=== PATIENT | male | born 2000 | race African-American/Black ===

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

== ENCOUNTER 2019-05-25 00:25 | Inpatient (IN) | payer OTHER ==
[2019-05-25] MEDS ORDERED: ALBUTEROL SO4 2.5/IPRATROPIUM 0.5 INH SOL 3 ML VIAL.NEB. NEB ONE ×2 (00:44→00:50)
--- NOTE | 2019-05-25 00:44 | PDOC ---
History of Present Illness - General Stated Complaint: DIFFICULTY BREATHING Time Seen by Provider: 05/25/19 00:34 - History of Present Illness Initial Comments: 05/25/19 00:42 CHIEF COMPLAINT: asthma exaceration HISTORY OF PRESENT ILLNESS: 18 yo M with hx of asthma (with hx hospitalization, no intubations) presents to ED with coughing and chest tightness since yesterday. Patient reports using albuterol inhaler at home but without relief. Reports subjective fever and chills, denies nausea/vomiting/diarrhea. No recent travel or sick contacts. PAST MEDICAL HISTORY: asthma FAMILY HISTORY: Denies SOCIAL HISTORY: Denies tobacco, alcohol, illicit drug use. SURGICAL HISTORY: Denies ALLERGIES: cats REVIEW OF SYSTEMS General/Constitutional: Denies fever or chills. Denies weakness, weight change. HEENT: Runny nose x 2 days. Denies change in vision. Denies ear pain or discharge. Denies sore throat. Cardiovascular: Denies chest pain or shortness of breath. Respiratory: Cough and wheezing since yesterday. Gastrointestinal: Denies nausea, vomiting, diarrhea or constipation. Denies rectal bleeding. Genitourinary: Denies dysuria, frequency, or change in urination. Musculoskeletal: Denies joint or muscle swelling or pain. Denies neck or back pain. Skin and breasts: Denies rash or easy bruising. Neurologic: Denies headache, vertigo, loss of consciousness, or loss of sensation. Psychiatric: Denies depression or anxiety. PHYSICAL EXAM General Appearance: Well-appearing, appropriately dressed. No apparent distress , no intoxication. HEENT: Post nasal drip, rhinorrhea, nasal congestion. EOMI, PERRLA, normal voice, TMs normal, pharynx normal. No conjunctival pallor. No photophobia, scleral icterus. Neck: Supple. Trachea midline. No tenderness, rigidity, carotid bruit, stridor , lymphadenopathy, or thyromegaly. Respiratory/Chest: Persistent nonproductive cough. Inspiratory and expiratory wheezing throughout. No chest tenderness,accessory muscle use. No crackles, rales, rhonchi, stridor, dullness Cardiovascular: RRR. S1, S2. No JVD, murmur, bradycardia, tachycardia. Vascular Pulses: Dorsalis-Pedis (R): 2+, Dorsalis-Pedis (L): 2+ Gastrointestinal/Abdominal: Normal bowel sounds. Abdomen soft, non-distended. No tenderness or rebound tenderness. No organomegaly, pulsatile mass, guarding , hernia, hepatomegaly, splenomegaly. Lymphatic: No adenopathy, tenderness. Musculoskeletal/Extremities: Normal inspection. FROM of all extremities, normal capillary refill. Pelvis Stable. No CVA tenderness. No tenderness to extremities, pedal edema, swelling, erythema or deformity. Integumentary: Appropriate color, dry, warm. No cyanosis, erythema, jaundice or rash Neurologic: milling machine operator II-XII intact. Fully oriented, alert. Appropriate mood/affect. Motor strength 5/5. No appreciable EOM palsy, facial droop or sensory deficit. 05/25/19 00:45 Past History - Past Medical History Allergies/Adverse Reactions: Allergies Allergy/AdvReac Type Severity Reaction Status Date / Time cat dander Allergy Verified 05/25/19 01:04 cats,dander,natures and Allergy Uncoded 05/25/19 01:04 steriods Allergy Uncoded 05/25/19 01:04 Home Medications: Ambulatory Orders Albuterol Sulfate Inhaler - [Ventolin HFA Inhaler -] 2 inh PO Q6H #1 inh Asthma: Yes COPD: No - Immunization History Immunization Up to Date: Yes - Suicide/Smoking/Psychosocial Hx Smoking Status: No Smoking History: Never smoked Have you smoked in the past 12 months: No Number of Cigarettes Smoked Daily: 0 Cigars Per Day: 0 Hx Alcohol Use: No Drug/Substance Use Hx: No Substance Use Type: None ED Treatment Course - LABORATORY CBC & Chemistry Diagram: 05/25/19 04:00 05/25/19 04:00 Medical Decision Making - Medical Decision Making 05/25/19 00:47 8 yo M with hx of asthma (with hx hospitalization, no intubations) presents to ED with coughing and chest tightness since yesterday. -duonebs, decadron -CXR 05/25/19 01:33 Patient continues to have wheezing to b/l lungs after duoneb x 3 and decadron. -1g Mg IV. Case discussed in detail with resident MD Laws including history, physical exam and ancillary studies. In brief, this patient is being seen in the ED for a chief complaint of: asthma exacerbation, cough Pending results: reassessement after Mg Plan for disposition as follows: likely admit if no improvement MD Laws has assumed care for the patient and will complete the evaluation and treatment. *DC/Admit/Observation/Transfer Diagnosis at time of Disposition: Asthma Qualifiers: Asthma severity: unspecified severity Asthma persistence: unspecified Asthma complication type: with acute exacerbation Qualified Code(s): J45.901 - Unspecified asthma with (acute) exacerbation - Discharge Dispostion Condition at time of disposition: Stable - Referrals - Patient Instructions - Post Discharge Activity
[2019-05-25] MEDS ORDERED: DEXAMETHASONE SOD PHOSPHATE 10 MG/1 ML VIAL IVPUSH ONE (00:45)
[2019-05-25] MEDS ORDERED: DEXAMETHASONE SOD PHOSPHATE 10 MG/1 ML VIAL ONE (01:23)
[2019-05-25] MEDS ORDERED: MAGNESIUM SULF 50% (8.12 MEQ/2 ML-1 GM VIAL) IVPB ONE (01:33)
[2019-05-25] MEDS ORDERED: MAGNESIUM SULF 50% (8.12 MEQ/2 ML-1 GM VIAL) ONE (01:43)
--- NOTE | 2019-05-25 02:34 | PDOC ---
*Physical Exam - Vital Signs Last Vital Signs Temp Pulse Resp BP Pulse Ox 98.3 F 120 H 20 108/59 L 95 05/25/19 01:00 05/25/19 01:00 05/25/19 01:00 05/25/19 01:00 05/25/19 02:00 - Physical Exam Comments: 05/25/19 03:13 General Appearance: Nourished. No Apparent Distress HEENT: No Pharyngeal Erythema, Tonsillar Exudate, Tonsillar Erythema Neck: No Cervical Lymphadenopathy Respiratory/Chest: Poor air movement with diffuse inspiratory and expiratory wheezing on exam. No Crackles, Rales, Rhonchi, Cardiovascular: Regular Rhythm, Tachycardic Rate. No Murmur, Gallops, Rubs Gastrointestinal/Abdominal: Normal Bowel Sounds, Soft. No Guarding, Rebound, Tenderness Musculoskeletal: No CVA Tenderness Extremity: Normal Capillary Refill Integumentary: Normal Color, Dry, Warm Neurologic: Fully Oriented, Alert, Normal Mood/Affect, Normal Response, ED Treatment Course - Medications Given in the ED: ED Medications Discontinued Medications Generic Name Dose Route Start Last Admin Trade Name Ariella PRN Reason Stop Dose Admin Albuterol/Ipratropium 3 amp 05/25/19 00:44 05/25/19 01:01 Duoneb - NEB 05/25/19 00:45 3 amp ONCE ONE Administration Dexamethasone Sodium Phosphate 10 mg 05/25/19 00:45 05/25/19 01:35 Decadron Injection - IVPUSH 05/25/19 00:46 10 mg ONCE ONE Administration Magnesium Sulfate 1 gm 05/25/19 01:33 05/25/19 01:50 Magnesium Sulfate IVPB 05/25/19 01:34 1 gm ONCE ONE Administration Medical Decision Making - Medical Decision Making 05/25/19 03:14 The patient continues to remain symptomatic with diffuse inspiratory and expiratory wheezing on exam despite treatment with multiple rounds of duonebs, decadron, and mag. The patient will require continues albuterol and admission for further management. We discussed the case with Dr. Steinberg with the admitting team who accepted the patient for admission. *DC/Admit/Observation/Transfer Diagnosis at time of Disposition: Asthma Qualifiers: Asthma severity: unspecified severity Asthma persistence: unspecified Asthma complication type: with acute exacerbation Qualified Code(s): J45.901 - Unspecified asthma with (acute) exacerbation - Discharge Dispostion Condition at time of disposition: Stable Decision to Admit order: Yes - Referrals Referrals: Wilton Barger [Primary Care Provider] - - Patient Instructions - Post Discharge Activity
[2019-05-25] MEDS ORDERED: ALBUTEROL SO4 0.083% IH SOL 2.5 MG/3 ML VIAL.NEB. NEB ONE ×2 (04:01→08:30)
[2019-05-25] MEDS: ALBUTEROL SO4 0.083% IH SOL 2.5 MG/3 ML VIAL.NEB. NEB PRN ×2 (04:03→08:30)
[2019-05-25] MEDS ORDERED: ACETAMINOPHEN 1000 MG/100 ML VIAL (NON FORMULARY) IVPB ONE (04:28)
[2019-05-25] MEDS ORDERED: ACETAMINOPHEN INJECTION 100 ML IVPB ONE (04:33)
[2019-05-25 04:47] LABS: BASO % 0.6 % (0-2.0); EOS % 0.9 % (0-4.5); HEMATOCRIT 45.4 % (35.4-49); HEMOGLOBIN 15.1 GM/dL (11.7-16.9); LYMPH % 4.4 % (8-40); MCH 28.6 pg (25.7-33.7); MCHC 33.3 g/dl (32.0-35.9); MEAN CELL VOLUME 85.9 fl (80-96); MEAN PLT VOLUME 9.3 fl (7.5-11.1); MONO % 4.4 % (3.8-10.2); NEUT % 89.7 % (42.8-82.8); PLATELET COUNT 352 K/MM3 (134-434); RBC 5.29 M/mm3 (4.00-5.60); RDW 13.6 % (11.9-15.9); WHITE BLOOD COUNT 16.8 K/mm3 (4.0-10.0)
[2019-05-25 08:09] LABS: BILIRUBIN,TOTAL 0.5 mg/dL (0.2-1); BLOOD UREA NITROGEN 13.8 mg/dL (7-18); CALCIUM 9.4 mg/dL (8.5-10.1); CREATININE 1.3 mg/dL (0.55-1.3); POTASSIUM 4.2 mmol/L (3.5-5.1); TOT PROT 8.9 g/dl (6.4-8.2)
[2019-05-25] MEDS ORDERED: ALBUTEROL SO4 2.5/IPRATROPIUM 0.5 INH SOL 3 ML VIAL.NEB. NEB PRN (09:15)
--- NOTE | 2019-05-25 09:47 | HP ---
Admitting History and Physical - Admission History of Present Illness: 18 y/o male with hx of asthma / obesity with 1-2 day hx of chest tightness and dyspnea, hx of hospitalizations but no intubation in the past - states has been controlled on pulmocort and ventolin. Reports inhalers "did not work" which prompted ER visit. He denies fever and chills prior to ED visit. History Source: Patient Limitations to Obtaining History: No Limitations - Past Medical History Pulmonary: Yes: Asthma - Smoking History Smoking history: Never smoked Have you smoked in the past 12 months: No Aproximately how many cigarettes per day: 0 - Alcohol/Substance Use Hx Alcohol Use: No History of Substance Use: reports: None - Social History Usual Living Arrangement: Yes: With Parent ADL: Independent History of Recent Travel: No Home Medications - Allergies Allergies/Adverse Reactions: Allergies Allergy/AdvReac Type Severity Reaction Status Date / Time cat dander Allergy Verified 05/25/19 01:04 cats,dander,natures and Allergy Uncoded 05/25/19 01:04 steriods Allergy Uncoded 05/25/19 01:04 - Home Medications Home Medications: Ambulatory Orders Albuterol Sulfate Inhaler - [Ventolin HFA Inhaler -] 2 inh PO Q6H #1 inh Review of Systems - Review of Systems Constitutional: denies: Chills, Fever, Night Sweats Eyes: reports: No Symptoms HENT: reports: No Symptoms Neck: reports: No Symptoms Cardiovascular: reports: Shortness of Breath. denies: Chest Pain, Palpitations Respiratory: reports: Cough, SOB, Wheezing Genitourinary: reports: No Symptoms Breasts: reports: No Symptoms Reported Musculoskeletal: reports: No Symptoms Integumentary: reports: No Symptoms Endocrine: reports: No Symptoms Hematology/Lymphatic: reports: No Symptoms Psychiatric: reports: No Symptoms Physical Examination Vital Signs: Vital Signs Temperature 99.1 F 05/25/19 07:19 Pulse Rate 98 H 05/25/19 07:19 Respiratory Rate 18 05/25/19 07:19 Blood Pressure 116/66 05/25/19 07:19 O2 Sat by Pulse Oximetry (%) 97 05/25/19 07:19 Constitutional: Yes: Well Nourished, No Distress, Calm, Obese Eyes: Yes: Conjunctiva Clear, EOM Intact HENT: Yes: Atraumatic, Normocephalic Neck: Yes: Supple, Trachea Midline Cardiovascular: Yes: Regular Rate and Rhythm Respiratory: Yes: Poor Air Entry, Wheezes Gastrointestinal: Yes: WNL ...Rectal Exam: Yes: Deferred Renal/: Yes: WNL Breast(s): Yes: WNL Musculoskeletal: Yes: WNL Extremities: Yes: WNL Edema: No Peripheral Pulses WNL: Yes Integumentary: Yes: WNL Neurological: Yes: WNL ...Motor Strength: WNL Psychiatric: Yes: WNL Labs: CBC, BMP 05/25/19 04:00 05/25/19 04:00 Problem List - Problems (1) Obesity (BMI 30.0-34.9) Code(s): E66.9 - OBESITY, UNSPECIFIED (2) Asthma Code(s): J45.909 - UNSPECIFIED ASTHMA, UNCOMPLICATED Qualifiers: Asthma severity: unspecified severity Asthma persistence: unspecified Asthma complication type: with acute exacerbation Qualified Code(s): J45.901 - Unspecified asthma with (acute) exacerbation (3) Hyponatremia Assessment/Plan: Na 130 no previous hx of hyponatremia Code(s): E87.1 - HYPO-OSMOLALITY AND HYPONATREMIA Assessment/Plan # Asthma IV steroids / inhaled steroids / nebulizer tx / singulair no evidence of infection defer ABX # Hyponatremia reports inc fluid intake will trend # Obese recommend weight loss
[2019-05-25] MEDS ORDERED: PT OWN MED DRAWER 7, Y5N ONE (11:27)
[2019-05-25] MEDS: DEXTROSE 5%-0.45% SALINE 1,000 ML IV SCH (11:29)
[2019-05-25] MEDS: MOMETASONE FUROATE 220 MCG/IH INHALER IH SCH (11:40)
[2019-05-25] MEDS: PANTOPRAZOLE 40 MG TABLET (FP) PO SCH (11:41)
[2019-05-25] MEDS: ALBUTEROL SO4 2.5/IPRATROPIUM 0.5 INH SOL 3 ML VIAL.NEB. NEB SCH ×3 (12:14→21:41)
[2019-05-25 13:10] VITALS: BMI 36.8
[2019-05-25] MEDS: methylPREDNISolone NA SUCC 125 MG/2 ML VIAL IVPUSH SCH ×2 (17:21→21:13)
[2019-05-25] MEDS: MONTELUKAST NA 10 MG TABLET PO SCH (21:13)
[2019-05-26] MEDS: methylPREDNISolone NA SUCC 125 MG/2 ML VIAL IVPUSH SCH ×3 (02:35→21:15)
[2019-05-26] MEDS: DEXTROSE 5%-0.45% SALINE 1,000 ML IV SCH ×2 (02:36→09:29)
[2019-05-26] MEDS: ALBUTEROL SO4 2.5/IPRATROPIUM 0.5 INH SOL 3 ML VIAL.NEB. NEB SCH ×4 (08:00→19:39)
[2019-05-26 08:06] LABS: HEMOGLOBIN 14.5 GM/dL (11.7-16.9); MCHC 33.7 g/dl (32.0-35.9); MEAN CELL VOLUME 85.9 fl (80-96); MEAN PLT VOLUME 8.4 fl (7.5-11.1); PLATELET COUNT 304 K/MM3 (134-434); RDW 13.6 % (11.9-15.9); WHITE BLOOD COUNT 25.3 K/mm3 (4.0-10.0)
[2019-05-26 08:34] LABS: ALBUMIN 3.8 g/dl (3.4-5.0); BILIRUBIN,TOTAL 0.3 mg/dL (0.2-1); BLOOD UREA NITROGEN 19.7 mg/dL (7-18); CALCIUM 9.3 mg/dL (8.5-10.1); CREATININE 1.1 mg/dL (0.55-1.3); MAGNESIUM 2.4 mg/dL (1.8-2.4); POTASSIUM 4.7 mmol/L (3.5-5.1); TOT PROT 7.4 g/dl (6.4-8.2)
[2019-05-26] MEDS: PANTOPRAZOLE 40 MG TABLET (FP) PO SCH (09:29)
[2019-05-26] MEDS: MOMETASONE FUROATE 220 MCG/IH INHALER IH SCH (09:31)
[2019-05-26] MEDS ORDERED: PNEUMOC 13-VAL CONJ-DIP CRM/PF 0.5 ML DISP.SYRIN IM ONE (12:33)
[2019-05-26] MEDS ORDERED: PNEUMOCOCCAL 23 VACCINE 0.5 ML VIAL IM ONE (13:15)
--- NOTE | 2019-05-26 16:31 | PN ---
Progress Note (short form) - Note Progress Note: patient sitting up in bed - reports feels better was able to sleep through the night Vital Signs Period Temp Pulse Resp BP Sys/Hernandez Pulse Ox Last 24 Hr 97.3 F-98.0 F 94-118 20-20 95-129/55-70 95-95 neck supple heart S1/S2 reg lung bilat end expiratory wheezing improved air movement abd soft non tender ext no edema FROM CBC, BMP 05/26/19 07:30 05/26/19 07:30 Active Medications Albuterol Sulfate (Ventolin 0.083% Nebulizer Soln -) 1 amp NEB Q1H PRN PRN Reason: SHORT OF BREATH/WHEEZING Last Admin: 05/25/19 08:30 Dose: 1 amp Albuterol/Ipratropium (Duoneb -) 1 amp NEB Q4H PRN PRN Reason: SHORTNESS OF BREATH Albuterol/Ipratropium (Duoneb -) 1 amp NEB RQID [facility] Last Admin: 05/26/19 16:00 Dose: 1 amp Dextrose/Sodium Chloride (D5-1/2ns -) 1,000 mls @ 75 mls/hr IV ASDIR [facility] Last Admin: 05/26/19 09:29 Dose: Not Given Methylprednisolone Sodium Succinate (Solu-Medrol -) 80 mg IVPUSH BID [facility] Mometasone Furoate (Asmanex 220mcg -) 2 puff IH DAILY [facility] Last Admin: 05/26/19 09:31 Dose: 2 puff Montelukast Sodium (Singulair -) 10 mg PO HS [facility] Last Admin: 05/25/19 21:13 Dose: 10 mg Pantoprazole Sodium (Protonix -) 40 mg PO DAILY [facility] Last Admin: 05/26/19 09:29 Dose: 40 mg ASMENT / PLAN # Asthma clinically improved taper steroids / continue PPi continue nebullizer tx / inh steroids / singulair # elevated WBC no fever or chills 2/2 to steroids POC discussed with patient Problem List - Problems (1) Obesity (BMI 30.0-34.9) Code(s): E66.9 - OBESITY, UNSPECIFIED (2) Asthma Code(s): J45.909 - UNSPECIFIED ASTHMA, UNCOMPLICATED Qualifiers: Asthma severity: unspecified severity Asthma persistence: unspecified Asthma complication type: with acute exacerbation Qualified Code(s): J45.901 - Unspecified asthma with (acute) exacerbation
[2019-05-26] MEDS: MONTELUKAST NA 10 MG TABLET PO SCH (21:15)
[2019-05-27] MEDS: ALBUTEROL SO4 2.5/IPRATROPIUM 0.5 INH SOL 3 ML VIAL.NEB. NEB SCH ×4 (07:35→21:10)
[2019-05-27 08:08] LABS: BASO % 0.1 % (0-2.0); HEMATOCRIT 43.2 % (35.4-49); HEMOGLOBIN 14.3 GM/dL (11.7-16.9); LYMPH % 4.7 % (8-40); MCH 28.4 pg (25.7-33.7); MEAN PLT VOLUME 8.6 fl (7.5-11.1); MONO % 4.7 % (3.8-10.2); NEUT % 90.5 % (42.8-82.8); PLATELET COUNT 367 K/MM3 (134-434); RBC 5.02 M/mm3 (4.00-5.60); RDW 13.7 % (11.9-15.9)
[2019-05-27 08:20] LABS: WHITE BLOOD COUNT 31.3 K/mm3 (4.0-10.0)
[2019-05-27 09:31] LABS: CALCIUM 9.3 mg/dL (8.5-10.1); POTASSIUM 4.6 mmol/L (3.5-5.1)
[2019-05-27] MEDS: DEXTROSE 5%-0.45% SALINE 1,000 ML IV SCH (09:57)
[2019-05-27] MEDS: methylPREDNISolone NA SUCC 125 MG/2 ML VIAL IVPUSH SCH (10:02)
[2019-05-27] MEDS: MOMETASONE FUROATE 220 MCG/IH INHALER IH SCH (10:11)
[2019-05-27] MEDS: PANTOPRAZOLE 40 MG TABLET (FP) PO SCH (10:11)
[2019-05-27 10:14] LABS: BLOOD UREA NITROGEN 18.8 mg/dL (7-18)
[2019-05-27 10:33] LABS: ANISOCYTOSIS 1+; MACROCYTOSIS 0; PLATELET ESTIMATE NORMAL
--- NOTE | 2019-05-27 18:03 | PN ---
Progress Note (short form) - Note Progress Note: patient sitting up in bed - reports feels better was able to sleep through the night + cough Vital Signs Period Temp Pulse Resp BP Sys/Hernandez Pulse Ox Last 24 Hr 97.3 F-98.0 F 94-118 20-20 95-129/55-70 95-95 neck supple heart S1/S2 reg lung increased bilat end expiratory and inspiratory wheezing abd soft non tender ext no edema FROM CBC, BMP 05/27/19 07:20 05/27/19 07:20 CBC, BMP 05/26/19 07:30 05/26/19 07:30 Active Medications Albuterol Sulfate (Ventolin 0.083% Nebulizer Soln -) 1 amp NEB Q1H PRN PRN Reason: SHORT OF BREATH/WHEEZING Last Admin: 05/25/19 08:30 Dose: 1 amp Albuterol/Ipratropium (Duoneb -) 1 amp NEB Q4H PRN PRN Reason: SHORTNESS OF BREATH Albuterol/Ipratropium (Duoneb -) 1 amp NEB RQID [facility] Last Admin: 05/27/19 16:03 Dose: 1 amp Dextrose/Sodium Chloride (D5-1/2ns -) 1,000 mls @ 75 mls/hr IV ASDIR [facility] Last Admin: 05/27/19 09:57 Dose: Not Given Methylprednisolone Sodium Succinate (Solu-Medrol -) 40 mg IVPUSH BID [facility] Mometasone Furoate (Asmanex 220mcg -) 2 puff IH DAILY [facility] Last Admin: 05/27/19 10:11 Dose: 2 puff Montelukast Sodium (Singulair -) 10 mg PO HS [facility] Last Admin: 05/26/19 21:15 Dose: 10 mg Pantoprazole Sodium (Protonix -) 40 mg PO DAILY [facility] Last Admin: 05/27/19 10:11 Dose: 40 mg ASMENT / PLAN # Asthma clinically improved will not taper steroids today / continue PPi continue nebullizer tx / inh steroids / singulair # elevated WBC / no bands no fever or chills 2/2 to steroids # Hyponatremia resolved POC discussed with patient Problem List - Problems (1) Obesity (BMI 30.0-34.9) Code(s): E66.9 - OBESITY, UNSPECIFIED (2) Asthma Code(s): J45.909 - UNSPECIFIED ASTHMA, UNCOMPLICATED Qualifiers: Asthma severity: unspecified severity Asthma persistence: unspecified Asthma complication type: with acute exacerbation Qualified Code(s): J45.901 - Unspecified asthma with (acute) exacerbation
[2019-05-27] MEDS ORDERED: methylPREDNISolone NA SUCC 40 MG/1 ML VIAL IVPUSH SCH (22:00)
[2019-05-27] MEDS: MONTELUKAST NA 10 MG TABLET PO SCH (22:50)
[2019-05-27] MEDS: methylPREDNISolone NA SUCC 40 MG/1 ML VIAL IVPUSH SCH (22:51)
[2019-05-27] MEDS: guaiFENesin 600 MG TABLET.ER (FP) PO SCH (22:51)
[2019-05-28 07:51] LABS: BASO % 0.1 % (0-2.0); HEMATOCRIT 42.1 % (35.4-49); LYMPH % 6.6 % (8-40); MCH 28.8 pg (25.7-33.7); MCHC 33.2 g/dl (32.0-35.9); MEAN CELL VOLUME 86.8 fl (80-96); MEAN PLT VOLUME 8.4 fl (7.5-11.1); MONO % 5.9 % (3.8-10.2); NEUT % 87.4 % (42.8-82.8); PLATELET COUNT 358 K/MM3 (134-434); RBC 4.85 M/mm3 (4.00-5.60); RDW 13.8 % (11.9-15.9)
[2019-05-28 08:03] LABS: BLOOD UREA NITROGEN 19.7 mg/dL (7-18); CALCIUM 9.1 mg/dL (8.5-10.1); CREATININE 1.1 mg/dL (0.55-1.3); POTASSIUM 4.7 mmol/L (3.5-5.1)
[2019-05-28] MEDS: ALBUTEROL SO4 2.5/IPRATROPIUM 0.5 INH SOL 3 ML VIAL.NEB. NEB SCH ×4 (08:21→21:00)
[2019-05-28] MEDS ORDERED: PT OWN MED DRAWER 7, Y5N ONE (10:09)
[2019-05-28] MEDS: guaiFENesin 600 MG TABLET.ER (FP) PO SCH ×2 (10:21→21:45)
[2019-05-28] MEDS: PANTOPRAZOLE 40 MG TABLET (FP) PO SCH (10:21)
[2019-05-28] MEDS: methylPREDNISolone NA SUCC 40 MG/1 ML VIAL IVPUSH SCH ×2 (10:21→21:45)
[2019-05-28] MEDS: MOMETASONE FUROATE 220 MCG/IH INHALER IH SCH (10:22)
[2019-05-28 11:08] LABS: ANISOCYTOSIS 0; MACROCYTOSIS 0; PLATELET ESTIMATE NORMAL
--- NOTE | 2019-05-28 21:33 | PN ---
Progress Note (short form) - Note Progress Note: patient sitting up in bed - reports feels better was able to sleep through the night feeling "much better" Vital Signs Period Temp Pulse Resp BP Sys/Hernandez Pulse Ox Last 24 Hr 97.8 F-98.5 F 91-105 18-20 114-136/62-81 94 neck supple heart S1/S2 reg lung improved air movement mild exp wheezing abd soft non tender ext no edema FROM CBC, [facility] 05/28/19 06:40 05/28/19 06:40 CBC, [facility] 05/27/19 07:20 05/27/19 07:20 CBC, [facility] 05/26/19 07:30 05/26/19 07:30 Active Medications Albuterol Sulfate (Ventolin 0.083% Nebulizer Soln -) 1 amp NEB Q1H PRN PRN Reason: SHORT OF BREATH/WHEEZING Last Admin: 05/25/19 08:30 Dose: 1 amp Albuterol/Ipratropium (Duoneb -) 1 amp NEB Q4H PRN PRN Reason: SHORTNESS OF BREATH Albuterol/Ipratropium (Duoneb -) 1 amp NEB RQID [facility] Last Admin: 05/28/19 21:00 Dose: 1 amp Guaifenesin (Mucinex -) 600 mg PO BID [facility] Last Admin: 05/28/19 10:21 Dose: 600 mg Dextrose/Sodium Chloride (D5-1/2ns -) 1,000 mls @ 75 mls/hr IV ASD[facility] Last Admin: 05/27/19 09:57 Dose: Not Given Methylprednisolone Sodium Succinate (Solu-Medrol -) 40 mg IVPUSH BID [facility] Mometasone Furoate (Asmanex 220mcg -) 2 puff IH DAILY [facility] Last Admin: 05/28/19 10:22 Dose: 2 puff Montelukast Sodium (Singulair -) 10 mg PO HS [facility] Last Admin: 05/27/19 22:50 Dose: 10 mg Pantoprazole Sodium (Protonix -) 40 mg PO DAILY [facility] Last Admin: 05/28/19 10:21 Dose: 40 mg ASMENT / PLAN # Asthma clinically improved taper steroids today / continue PPi continue nebullizer tx / inh steroids / singulair # elevated WBC / no bands no fever or chills 2/2 to steroids POC discussed with patient - probable d/c in am Problem List - Problems (1) Obesity (BMI 30.0-34.9) Code(s): E66.9 - OBESITY, UNSPECIFIED (2) Asthma Code(s): J45.909 - UNSPECIFIED ASTHMA, UNCOMPLICATED Qualifiers: Asthma severity: unspecified severity Asthma persistence: unspecified Asthma complication type: with acute exacerbation Qualified Code(s): J45.901 - Unspecified asthma with (acute) exacerbation
[2019-05-28] MEDS: DEXTROSE 5%-0.45% SALINE 1,000 ML IV SCH (21:42)
[2019-05-28] MEDS: MONTELUKAST NA 10 MG TABLET PO SCH (21:45)
[2019-05-29] MEDS: ALBUTEROL SO4 2.5/IPRATROPIUM 0.5 INH SOL 3 ML VIAL.NEB. NEB SCH ×2 (07:55→12:23)
[2019-05-29 08:10] LABS: BASO % 0.1 % (0-2.0); HEMATOCRIT 44.7 % (35.4-49); HEMOGLOBIN 14.8 GM/dL (11.7-16.9); LYMPH % 8.2 % (8-40); MCH 28.6 pg (25.7-33.7); MCHC 33.1 g/dl (32.0-35.9); MEAN CELL VOLUME 86.3 fl (80-96); MEAN PLT VOLUME 8.1 fl (7.5-11.1); MONO % 8.4 % (3.8-10.2); NEUT % 83.3 % (42.8-82.8); PLATELET COUNT 389 K/MM3 (134-434); RBC 5.18 M/mm3 (4.00-5.60); RDW 13.5 % (11.9-15.9); WHITE BLOOD COUNT 25.9 K/mm3 (4.0-10.0)
[2019-05-29 08:33] LABS: BLOOD UREA NITROGEN 18.4 mg/dL (7-18); CALCIUM 9.6 mg/dL (8.5-10.1); CREATININE 0.9 mg/dL (0.55-1.3); POTASSIUM 4.5 mmol/L (3.5-5.1)
[2019-05-29] MEDS: DEXTROSE 5%-0.45% SALINE 1,000 ML IV SCH (09:41)
[2019-05-29] MEDS: guaiFENesin 600 MG TABLET.ER (FP) PO SCH (09:44)
[2019-05-29] MEDS: MOMETASONE FUROATE 220 MCG/IH INHALER IH SCH (09:44)
[2019-05-29] MEDS: PANTOPRAZOLE 40 MG TABLET (FP) PO SCH (09:44)
[2019-05-29] MEDS: methylPREDNISolone NA SUCC 40 MG/1 ML VIAL IVPUSH SCH (09:44)
[2019-05-29 11:52] LABS: ANISOCYTOSIS 0; MACROCYTOSIS 0; OVALOCYTE 1+; PLATELET ESTIMATE NORMAL; TEAR DROP CELLS 1+; TOXIC GRANULATION 1+
--- NOTE | 2019-05-29 11:54 | DS ---
Physical Examination Vital Signs: Vital Signs Temperature 97.6 F 05/29/19 06:04 Pulse Rate 90 05/29/19 06:04 Respiratory Rate 20 05/29/19 06:04 Blood Pressure 142/84 05/29/19 06:04 O2 Sat by Pulse Oximetry (%) 95 05/28/19 21:00 Findings/Remarks: 18 y/o male with hx of asthma / obesity with 1-2 day hx of chest tightness and dyspnea, hx of hospitalizations but no intubation in the past - states has been controlled on pulmocort and ventolin. Reports inhalers "did not work" which prompted ER visit. He denies fever and chills prior to ED visit. Patient treated with IV steroid / nebulizer /singulair/ with improvement. Patient with clinical improvement - instructed on follow up/ and medical management Constitutional: Yes: Well Nourished, No Distress, Calm, Obese Eyes: Yes: WNL, Conjunctiva Clear HENT: Yes: WNL, Atraumatic, Normocephalic Neck: Yes: Supple, Trachea Midline Cardiovascular: Yes: Regular Rate and Rhythm Respiratory: Yes: Regular, CTA Bilaterally, Wheezes (occasionally expiratory wheezing) Gastrointestinal: Yes: Normal Bowel Sounds, Soft, Abdomen, Obese ...Rectal Exam: Yes: Deferred Renal/: Yes: WNL Extremities: Yes: WNL Edema: No Peripheral Pulses WNL: Yes Integumentary: Yes: WNL Neurological: Yes: WNL ...Motor Strength: WNL Psychiatric: Yes: WNL Labs: CBC, BMP 05/29/19 07:30 05/29/19 07:30 Discharge Summary Problems reviewed: Yes Reason For Visit: ASTHMA Current Active Problems Asthma (Acute) Hyponatremia (Acute) Obesity (BMI 30.0-34.9) (Acute) Condition: Stable - Instructions Disposition: HOME - Home Medications Comprehensive Discharge Medication List: Ambulatory Orders Albuterol Sulfate Inhaler - [Ventolin HFA Inhaler -] 2 inh PO Q6H #1 inh prednisone 40 mg q day for 2 days then 20 mg q day for 3 days then D/C pulmocort inh BID singlair 10 mg q hs nexium 40 mg q day for 10 days
[2019-05-29 13:21] VITALS: BP 129/69; PULSE 96; TEMP 97.7
== END 2019-05-29 13:45 | disposition home or self-care (01) | DRG 141 ==
LOC: JER 00:25 → JERBED 03:09 → J5S 08:57
PROVIDERS: ADMIT Family Medicine; ATTEND Family Medicine
DX: J45.901 Unspecified asthma with (acute) exacerbation (principal); E66.8 Other obesity; Z68.36 Body mass index [BMI] 36.0-36.9, adult; E87.1 Hypo-osmolality and hyponatremia
CPT/HCPCS: 36415; 71046-TC-FY; 80048; 80053; 83735; 85025; 85027; 90732; 94640; 99284-25; G0009; J0131; J1100